=== PATIENT | male | born 1955 ===

== ENCOUNTER 2025-08-30 10:11 | Day surgery (SDC) | payer MEDICARE, BC ==
[2025-08-29 10:02] VITALS: BMI 30.2
[2025-08-30 11:47] LABS: #Basophils 0.12 10x3/uL (0.0-0.2); #Eosinophils 0.45 10x3/uL (0.0-0.7); #Monocytes 0.47 10x3/uL (0.11-0.59); #Neutrophils 3.64 10x3/uL (1.40-6.50); %Basophils 1.8 % (0.0-1.0); %Eosinophils 6.8 % (0.0-10.0); %Lymphocytes 29.2 % (21.0-51.0); %Monocytes 7.1 % (0.0-10.0); %Neutrophils 54.9 % (42.0-75.0); Hematocrit 51.0 % (42.0-52.0); Hemoglobin 16.1 g/dL (14.0-18.0); Mean Corpuscular Hemoglobin 29.4 pg (27.0-31.0); Mean Corpuscular Volume 93.2 fL (78.0-98.0); Platelet Count 305 10x3/uL (130-400); Red Blood Cell (RBC) Count 5.47 mill/uL (4.70-6.10); White Blood Cell (WBC) Count 6.62 10x3/uL (4.8-10.8)
[2025-08-30 12:06] LABS: ALT (SGPT) 67 U/L (Less than 45); AST (SGOT) 33 U/L (11-34); Albumin 3.9 g/dL (3.1-4.5); Alkaline Phosphatase 102 U/L (40-110); Anion Gap 13 mmol/L (10-20); BUN (Urea Nitrogen) 15 mg/dL (8.4-25.7); Bilirubin, Total 1.5 mg/dL (0.3-1.2); Calc. Creatinine Clearance 124 mL/min (70-130); Calcium 9.5 mg/dL (7.8-10.44); Carbon Dioxide 24 mmol/L (23-31); Chloride 109 mmol/L (98-107); Globulin 3.3 g/dL (2.4-3.5); Glucose 92 mg/dL (80-115); Potassium 4.0 mmol/L (3.5-5.1); Sodium 142 mmol/L (136-145)
[2025-08-30] MEDS ORDERED: Lidocaine 1% PF 5 ML VIAL ONE (13:53)
[2025-08-30] MEDS ORDERED: PROPOFOL 200 MG/20 ML VIAL ONE (13:53)
== END 2025-08-30 14:56 | disposition home or self-care (01) ==
LOC: EDBD → SDC 10:11
PROVIDERS: ATTEND Internal Medicine Cardiovascular Disease
PROC: B245ZZ4 Ultrasonography of Left Heart, Transesophageal (ICD-10-PCS; principal; 2025-08-30)
PROC: 5A2204Z Restoration of Cardiac Rhythm, Single (ICD-10-PCS; 2025-08-30)
DX: I48.0 Paroxysmal atrial fibrillation (principal); I35.0 Nonrheumatic aortic (valve) stenosis; Z90.49 Acquired absence of other specified parts of digestive tract; Z98.890 Other specified postprocedural states
CPT/HCPCS: 80053; 85025; 92960; 93005; 93312; J2704; 93010

== ENCOUNTER 2025-09-12 10:02 | Day surgery (SDC) | payer MEDICARE, BC ==
[2025-09-11 09:59] VITALS: BMI 30.2
[2025-09-12] MEDS ORDERED: PROPOFOL 20 ML ONE (13:15)
== END 2025-09-12 14:40 | disposition home or self-care (01) ==
LOC: SDC 10:02
PROVIDERS: ATTEND Internal Medicine Cardiovascular Disease
PROC: 5A2204Z Restoration of Cardiac Rhythm, Single (ICD-10-PCS; principal; 2025-09-12)
DX: I48.0 Paroxysmal atrial fibrillation (principal); Z90.49 Acquired absence of other specified parts of digestive tract
CPT/HCPCS: 92960; 93005; J2704; 93010